=== PATIENT | male | born 1970 | race Caucasian/White ===

== ENCOUNTER → 2018-01-27 | Outpatient (CLI) | payer OTHER | LOC: FIMAGING 12:54 | PROVIDERS: ATTEND Internal Medicine Endocrinology, Diabetes & Metabolism | DX: E04.1 Nontoxic single thyroid nodule (principal) ==

== ENCOUNTER → 2018-02-01 | Outpatient (CLI) | payer OTHER ==
[~2018-02-01] MED LIST: LIDOCAINE 1% 300 MG/30 ML SDV ONE
== END ==
LOC: FIMAGING 10:01
PROVIDERS: ATTEND Internal Medicine Endocrinology, Diabetes & Metabolism
PROC: 0G9K3ZX Drainage of Thyroid Gland, Percutaneous Approach, Diagnostic (ICD-10-PCS; principal; 2018-02-01)
DX: C73 Malignant neoplasm of thyroid gland (principal)

== ENCOUNTER 2018-02-16 15:16 | Day surgery (SDC) | payer OTHER ==
[2018-02-16] MEDS ORDERED: LR 1,000 ML IV ONE (16:06)
[2018-02-16] MEDS ORDERED: LIDOCAINE 1% 2 ML INJ ID PRN (16:06)
--- NOTE | 2018-02-16 16:10 | PDHPUP ---
History & Physical Update H&P update statement: This history and physical update is based on an assessment of the patient which was completed after admission or registration (within 24 hours), but prior to the surgery/procedure. H&P update: H&P reviewed & patient examined, no change in patient's condition since H&P completed
[2018-02-16] MEDS ORDERED: BUPIVACAINE/EPI 0.5% 30 ML SDV ONE (17:04)
[2018-02-16] MEDS ORDERED: MIDAZOLAM 2 MG/2 ML VIAL ONE (17:10)
[2018-02-16] MEDS ORDERED: fentaNYL 100 MCG/2 ML INJ ONE ×2 (17:30→17:55)
[2018-02-16] MEDS ORDERED: PROPOFOL/EMULSION 500 MG/50 ML BOTTLE IV ONE (17:30)
[2018-02-16] MEDS ORDERED: MIDAZOLAM 2 MG/2 ML VIAL IVP ONE (18:07)
--- NOTE | 2018-02-16 18:07 | PDANEPAE ---
ANE Past Medical History - Cardiovascular History Hx Hypertension: No Hx Arrhythmias: No Hx Chest Pain: No Hx Coronary Artery / Peripheral Vascular Disease: No Hx CHF / Valvular Disease: No Hx Palpitations: Yes Cardiovascular History Comment: PALPITATIONS IN 20'S-NEVER CAUGHT ON EKG. - Pulmonary History Hx COPD: No Hx Asthma/Reactive Airway Disease: Yes Hx Recent Upper Respiratory Infection: No Hx Oxygen in Use at Home: No Hx Sleep Apnea: No Sleep Apnea Screening Result - Last Documented: Negative Pulmonary History Comment: CHILDHOOD ASTHMA. NO PROBLEMS AN ADULT - Neurologic History Hx Cerebrovascular Accident: No Hx Seizures: No Hx Dementia: No - Endocrine History Hx Diabetes: No Endocrine History Comment: CURRENT THYROID CA- NORMAL THYROID LEVELS - Renal History Hx Renal Disorders: No - Liver History Hx Hepatic Disorders: No - Neurological & Psychiatric Hx Hx Neurological and Psychiatric Disorders: No - Cancer History Hx Cancer: Yes Cancer History Comment: CURRENT THYROID CA - Congenital Disorder History Hx Congenital Disorders: No - GI History Hx Gastrointestinal Disorders: No - Chronic Pain History Chronic Pain: No - Surgical History Prior Surgeries: INGUINAL HERNIA REPAIR 2008. RHINOPLASTY 1991 ANE Review of Systems Review of Systems: - Exercise capacity METS (RN): 6 METS ANE Patient History - Allergies Allergies/Adverse Reactions: coconut Allergy (Verified 02/15/18 15:23) - Home Medications Home Medications: Acetaminophen 02/15/18 [Last Taken Unknown] Finasteride 02/15/18 [Last Taken Unknown] - NPO status NPO Since - Liquids (Date): 02/16/18 NPO Since - Liquids (Time): 13:00 NPO Since - Solids (Date): 02/16/18 NPO Since - Solids (Time): 05:00 - Smoking Hx Smoking Status: Never smoked - Family Anes Hx Family Hx Anesthesia Complications: NONE ANE Labs/Vital Signs - Vital Signs Blood Pressure: 131/90 Heart Rate: 71 Respiratory Rate: 18 O2 Sat (%): 97 Height: 182.88 cm Weight: 81.647 kg ANE Physical Exam - Airway Neck exam: FROM Mallampati Score: Class 1 Mouth exam: normal dental/mouth exam - Pulmonary Pulmonary: no respiratory distress - Cardiovascular Cardiovascular: regular rate and rhythym ANE Anesthesia Plan Anesthesia Plan: general endotracheal anesthesia Urgent/Emergent Case: Renetta ye completed preop but documented later for safe timely pt care
[2018-02-16] MEDS ORDERED: ONDANSETRON 4 MG/2 ML VIAL ONE (18:34)
[2018-02-16] MEDS ORDERED: DEXAMETHASONE 4 MG/ML VIAL ONE (18:34)
[2018-02-16] MEDS ORDERED: KETOROLAC 30 MG/1 ML SDV ONE (18:35)
[2018-02-16] MEDS ORDERED: ONDANSETRON 4 MG/2 ML VIAL IVP PRN (18:48)
[2018-02-16] MEDS ORDERED: HYDROCODONE/APAP 5/325 TAB PO PRN (18:48)
[2018-02-16] MEDS ORDERED: LABETALOL HCL 5 MG/ML 20 ML MDV IVP PRN (18:48)
[2018-02-16] MEDS ORDERED: HYDROmorphONE/DILAUDID 1 MG/ML INJ IVP PRN (18:48)
[2018-02-16] MEDS ORDERED: ACETAMINOPHEN 500 MG TAB PO PRN (18:48)
[2018-02-16] MEDS ORDERED: PROMETHAZINE HCL 25 MG/ML INJ IVP PRN (18:48)
[2018-02-16] MEDS ORDERED: DEXAMETHASONE 4 MG/ML VIAL IVP PRN (18:48)
[2018-02-16] MEDS ORDERED: oxyCODONE IR 5 MG TAB PO PRN (18:48)
[2018-02-16] MEDS ORDERED: MEPERIDINE 25 MG/0.5 ML AMP IVP PRN (18:48)
[2018-02-16] MEDS ORDERED: NALOXONE HCL 0.4 MG/ML INJ IVP PRN (18:48)
[2018-02-16] MEDS ORDERED: fentaNYL 100 MCG/2 ML INJ IVP PRN (18:48)
--- NOTE | 2018-02-16 18:53 | POSTANESTH ---
Post Anesthetic Evaluation Cardiovascular Status: Normal, Stable, Similar to Pre-Op Cond Respiratory Status: Normal, Stable, Similar to Pre-op Cond. Level of Consciousness/Mental Status: Can Participate in Eval, Mildly Sleepy, Arousable Pain Control: Adequate, Prn Tx Ordered Nausea/Vomiting Control: Adequate, Prn Tx Ordered Complications Possibly Related to Anesthesia: None Noted
[2018-02-16] MEDS ORDERED: SUGAMMADEX SODIUM 200 MG/2 ML VIAL IVP ONE (19:01)
--- NOTE | 2018-02-16 19:08 | POSTOPPROG ---
Post Op Note Date of Operation: 02/16/18 Surgeon: Alexi Guevara Feather Shaper: Eddie Frye Anesthesia: GET(General Endotracheal) Pre-op Diagnosis: Left papillary thyroid cancer Post-op Diagnosis: Same Procedure: Total thyroidectomy Findings: No LAD Inf/Abcess present in the surg proc area at time of surgery?: No EBL: Minimal Specimen(s): thyroid
--- NOTE | 2018-02-16 20:29 | GOP ---
[f rep st] OPERATIVE REPORT DATE OF OPERATION: 02/16/2018 SURGEON: Alexi Guevara MD ATOMIC PHYSICS TEACHER: Eddie Frye MD ANESTHESIA: General. ANESTHESIOLOGIST: Aidan Agrawal MD PREOPERATIVE DIAGNOSIS: Left papillary thyroid carcinoma. POSTOPERATIVE DIAGNOSIS: Left papillary thyroid carcinoma. PROCEDURE PERFORMED: Total thyroidectomy. FINDINGS: See below. INDICATIONS: 47-year-old male with a newly diagnosed left thyroid papillary carcinoma. Clinically, no suspicious adenopathy is present on exam or ultrasonography. He is undergoing a total thyroidectomy at this time. Surgical risks and benefits were explained of bleeding, infection, tumor recurrence, differential diagnoses, nerve injury, hypoparathyroidism, hypothyroidism, as well as role for additional adjuvant therapy. All questions were answered. He desires to proceed. DESCRIPTION OF PROCEDURE: General anesthesia was induced. The neck was pre- injected with 0.5% Marcaine along the anterior cervical plexus, as well as the low neck. A low collar incision was created. The platysma muscle was divided. Subplatysmal flaps were created to the level of the cricothyroid membrane, platysma, and clavicles circumferentially. The midline strap muscles were along their raphe. The left sheila-neck cavity was initially unroofed. The thyroid nodule was noted to be well contained and encapsulated within the upper portion of the thyroid lobe. The inspection of the lateral aspect of the neck showed no suspicious adenopathy. Using blunt dissection, the gland was elevated up into the operative field. The superior pole vessels were circumferentially encompassed and divided using the ultrasonic dissector. The middle thyroid vein was divided. The upper pole parathyroid gland was identified and preserved away from the thyroid capsule. The lower pole parathyroid gland was not definitively visualized. The lower pole vessels were circumferentially encompassed and divided with the ultrasonic dissector. The recurrent laryngeal nerve was easily identified coursing into the thyroid cartilage, as were its superior branch points. At this point, the gland was peeled from lateral to medial, dividing Witt's ligaments and taking the gland across the trachea. A diminutive pyramidal lobe was present. This was included with the specimen. The contralateral neck was subsequently dissected out. Again, no lateral neck adenopathy was present. The superior pole vasculature was circumferentially encompassed, divided with the ultrasonic dissector, as was the inferior pole vessels. The middle thyroid vein was divided, allowing for complete exposure of the recurrent laryngeal nerve. This was easily identified coursing into the thyroid cartilage as well. Both upper and lower pole parathyroid glands were identified and from the thyroid capsule. At this point, the gland was again peeled from lateral to medial, dividing Witt's ligament and completing the dissection across the trachea. The gland was removed intact and sent for permanent specimen processing. Satisfactory hemostasis was assured throughout bilateral sheila-neck cavities. The left upper as well as both right neck parathyroid glands were confirmed viable. Malou was placed within the bilateral neck sheila-neck cavities. The wound was closed in layers with absorbable sutures followed by Dermabond. The patient was taken to recovery and extubated uneventfully. /[id number]/MODL MTDD
[2018-02-16 20:40] VITALS: BP 139/100
== END 2018-02-16 20:38 | disposition home or self-care (01) ==
LOC: FSGY 15:16
PROVIDERS: ATTEND Surgery
PROC: 0GTK0ZZ Resection of Thyroid Gland, Open Approach (ICD-10-PCS; principal; 2018-02-16 16:30)
DX: C73 Malignant neoplasm of thyroid gland (principal)
CPT/HCPCS: J1100; J1885; J2250; J2405; J2704; J3010

== ENCOUNTER → 2018-07-14 | Outpatient (CLI) | payer OTHER | LOC: FIMAGING 13:10 | PROVIDERS: ATTEND Internal Medicine Endocrinology, Diabetes & Metabolism | DX: C73 Malignant neoplasm of thyroid gland (principal) ==